=== PATIENT | female | born 1990 | race Hispanic/Latino ===

== ENCOUNTER 2022-05-03 03:59 | Observation (INO) | payer OTHER ==
[2022-05-03] MEDS ORDERED: NA CHLORIDE 0.9% 1,000 ML ONE ×2 (05:02→05:16)
[2022-05-03] MEDS ORDERED: ONDANSETRON 4 MG/2 ML VIAL ONE ×2 (05:02→07:42)
[2022-05-03] MEDS ORDERED: FAMOTIDINE 20 MG/2 ML VIAL IV ONE ×2 (05:02→10:23)
[2022-05-03 05:05] LABS: Absolute Lymphocytes (CBC) 0.5 K/uL (0.7-4.9); Hematocrit 39.4 % (36.0-45.0); Lymphocytes % 4.1 % (15.3-44.8); MCV 90.1 fL (80-100); MPV 8.1 fL (7.6-11.3); RBC Red Blood Cell Count 4.37 M/uL (3.86-4.86)
[2022-05-03] MEDS ORDERED: FENTANYL CITR 100 MCG/2 ML ONE ×2 (05:16→10:22)
[2022-05-03 05:18] LABS: Albumin 3.8 g/dL (3.4-5.0); Bilirubin Total 0.4 mg/dL (0.2-1.0); Protein, Total 7.6 g/dL (6.4-8.2)
[2022-05-03 05:36] LABS: Urine Blood Negative (Negative); Urine Glucose Negative (Negative); Urine Protein Negative (Negative)
--- NOTE | 2022-05-03 07:22 | EDPHYS ---
Physician Documentation [facility] Name: Moriah Marshall Age: 31 yrs Sex: Female : 1990 Arrival Date: 05/03/2022 Time: 04:03 Bed 15 Private MD: ED Physician Ozzy Vinson HPI: 05/03 04:57 This 31 yrs old Female presents to ER via Ambulatory with complaints of eun Abdominal Pain, Diarrhea, Vomiting. 04:57 The patient presents to the emergency department with nausea, vomiting, diarrhea, that eun is continuous. Onset: The symptoms/episode began/occurred last night. Possible causes: unknown. The symptoms are aggravated by nothing. The symptoms are alleviated by nothing. Associated signs and symptoms: Pertinent positives: abdominal pain. Severity of symptoms: At their worst the symptoms were mild moderate in the emergency department the symptoms are unchanged. The patient has not experienced similar symptoms in the past. 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 - Social history:: Smoking status: Patient denies any tobacco usage or history of. ROS: 04:58 Constitutional: Negative for fever, chills, and weight loss, Eyes: Negative for injury, eun pain, redness, and discharge, ENT: Negative for injury, pain, and discharge, Neck: Negative for injury, pain, and swelling, Cardiovascular: Negative for chest pain, palpitations, and edema, Respiratory: Negative for shortness of breath, cough, wheezing, and pleuritic chest pain, Back: Negative for injury and pain, : Negative for injury, bleeding, discharge, and swelling, MS/Extremity: Negative for injury and deformity, Skin: Negative for injury, rash, and discoloration, Neuro: Negative for headache, weakness, numbness, tingling, and seizure, Psych: Negative for depression, anxiety, suicide ideation, homicidal ideation, and hallucinations, Allergy/Immunology: Negative for hives, rash, and allergies, Endocrine: Negative for neck swelling, polydipsia, polyuria, polyphagia, and marked weight changes, Hematologic/Lymphatic: Negative for swollen nodes, abnormal bleeding, and unusual bruising. 04:58 Abdomen/GI: Positive for abdominal pain, nausea and vomiting, diarrhea. Exam: 04:58 Constitutional: This is a well developed, well nourished patient who is awake, alert, eun and in no acute distress. Head/Face: Normocephalic, atraumatic. Eyes: Pupils equal round and reactive to light, extra-ocular motions intact. Lids and lashes normal. Conjunctiva and sclera are non-icteric and not injected. Cornea within normal limits. Periorbital areas with no swelling, redness, or edema. ENT: Nares patent. No nasal discharge, no septal abnormalities noted. Tympanic membranes are normal and external auditory canals are clear. Oropharynx with no redness, swelling, or masses, exudates, or evidence of obstruction, uvula midline. Mucous membranes moist. Neck: Trachea midline, no thyromegaly or masses palpated, and no cervical lymphadenopathy. Supple, full range of motion without nuchal rigidity, or vertebral point tenderness. No Meningismus. Chest/axilla: Normal chest wall appearance and motion. Nontender with no deformity. No lesions are appreciated. Cardiovascular: Regular rate and rhythm with a normal S1 and S2. No gallops, murmurs, or rubs. Normal PMI, no JVD. No pulse deficits. Respiratory: Lungs have equal breath sounds bilaterally, clear to auscultation and percussion. No rales, rhonchi or wheezes noted. No increased work of breathing, no retractions or nasal flaring. Abdomen/GI: Soft, non-tender, with normal bowel sounds. No distension or tympany. No guarding or rebound. No evidence of tenderness throughout. Back: No spinal tenderness. No costovertebral tenderness. Full range of motion. Female : Normal external genitalia. Skin: Warm, dry with normal turgor. Normal color with no rashes, no lesions, and no evidence of cellulitis. MS/ Extremity: Pulses equal, no cyanosis. Neurovascular intact. Full, normal range of motion. Neuro: Awake and alert, GCS 15, oriented to person, place, time, and situation. Cranial nerves II-XII grossly intact. Motor strength 5/5 in all extremities. Sensory grossly intact. Cerebellar exam normal. Normal gait. Psych: Awake, alert, with orientation to person, place and time. Behavior, mood, and affect are within normal limits. Vital Signs: 04:16 BP 130 / 95; Pulse 83; Resp 18; Temp 97.6(O); Pulse Ox 100% ; Weight 78.47 kg; Height 5 kl ft. 3 in. (160.02 cm); Pain 4/10; 05:43 Pain 2/10; ke1 05:45 BP 130 / 94; Pulse 81; Resp 17; Pulse Ox 100% ; ke1 07:00 BP 128 / 91; Pulse 93; Resp 16; Pulse Ox 100% ; bp 04:16 Body Mass Index 30.65 (78.47 kg, 160.02 cm) kl MDM: 04:22 Patient medically screened. eun 04:59 Differential diagnosis: Nonspecific abd pain, gastritis, cholecystitis, pancreatitis, eun appendicitis, diverticulitis, viral gastroenteritis, gastroenteritis. Data reviewed: vital signs, nurses notes, lab test result(s). 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 05/03 04:24 Order name: CBC with Diff; Complete Time: 05:10 [facility] 05/03 04:24 Order name: CMP; Complete Time: 05:33 [facility] 05/03 04:24 Order name: Lipase; Complete Time: 05:33 [facility] 05/03 05:36 Order name: Urine --Ancillary (enter results); Complete Time: 06:51 05/03 05:37 Order name: Urine Dipstick-Ancillary; Complete Time: 05:40 [facility] 05/03 07:49 Order name: SARS RAPID bp 05/03 04:57 Order name: CT Abd/Pelvis - IV Contrast Only [facility] 05/03 06:52 Order name: US Transvaginal Study (Probe) [facility] 05/03 09:31 Order name: SARS-COV-2 Antigen Rapid [facility] 05/03 10:43 Order name: CBC with Manual Differential [facility] 05/03 04:24 Order name: IV Saline Lock; Complete Time: 04:53 [facility] 05/03 04:24 Order name: Labs collected and sent; Complete Time: 04:53 [facility] 05/03 04:24 Order name: Urine Dipstick-Ancillary (obtain specimen); Complete Time: 05:37 [facility] 05/03 04:24 Order name: Urine Test (obtain specimen); Complete Time: 05:37 [facility] 05/03 09:35 Order name: Labs - recollect needed: blood hemolyed/ will reprint label; Complete Time: eb 10:20 Administered Medications: 05:03 Drug: NS 0.9% 1000 ml Route: IV; Rate: 1 bolus; Site: right antecubital; ke1 10:38 Follow up: IV Status: Completed infusion; IV Intake: 1000ml bp 05:03 Drug: Pepcid (famotidine) 20 mg Route: IVP; Site: right antecubital; ke1 05:33 Follow up: Response: No adverse reaction ke1 05:03 Drug: Zofran (Ondansetron) 4 mg Route: IVP; Site: right antecubital; ke1 05:33 Follow up: Response: Nausea is decreased ke1 05:13 Drug: fentaNYL (PF) 25 mcg Route: IVP; Site: right antecubital; ke1 05:43 Follow up: Pain 2/10 Adult; Response: Pain is decreased ke1 05:13 Drug: NS 0.9% 1000 ml Route: IV; Rate: 1 bolus; Site: right antecubital; ke1 10:37 Follow up: IV Status: Completed infusion; IV Intake: 1000ml bp 07:15 Drug: Ketorolac 30 mg Route: IVP; Site: right antecubital; bp 07:48 Follow up: Response: Pain is decreased bp 07:15 Drug: Zofran (Ondansetron) 4 mg Route: IVP; Site: right antecubital; bp 07:49 Follow up: Response: No adverse reaction bp 07:43 Not Given (Patient Refused): fentaNYL (PF) 25 mcg IVP once bp 07:43 Not Given (Patient Refused): Zofran (Ondansetron) 4 mg IVP once; over 2 minutes bp Disposition Summary: 05/03/22 07:21 Hospitalization Ordered Hospitalization Status: Observation eun Condition: Fair eun Problem: new eun Symptoms: have improved eun Bed/Room Type: Standard eun Provider: Patrick Liriano(05/03/22 07:36) eun [facility](05/03/22 07:59) eb Room Assignment: 271-(05/03/22 10:08) eb Diagnosis - Hemoperitoneum - ovarian cyst, hemorrhagic eun - Abdominal tenderness eun Discharge Instructions: - Discharge Summary Sheet eun - Abdominal Pain, Adult eun - Food Choices to Help Relieve Diarrhea, Adult eun - Diarrhea, Adult eun - Diarrhea, Adult, Dwhd-mi-Wrut eun - Vomiting, Adult eun Forms: - Medication Reconciliation Form eun - SBAR form eun Prescriptions: - Zofran 4 mg Oral Tablet - take 1 tablet by ORAL route every 12 hours As needed; 20 tablet; Refills: 0, eun Product Selection Permitted - promethazine 25 mg Oral Tablet - take 1 tablet by ORAL route every 6 hours As needed; 20 tablet; Refills: 0, [facility] Product Selection Permitted - dicyclomine 20 mg Oral Tablet - take 1 tablet by ORAL route 4 times per day; 28 tablet; Refills: 0, Product eun Selection Permitted Signatures: Dispatcher [employer] Alice Arenas RN RN kl Anderson, Corey, MD MD cha Peltier, Brian RN Aiyana Suárez Kouassi, RN RN ke1 Natacha Chávez PA PA sb3 Corrections: (The following items were deleted from the chart) 05:17 05:15 PMHx: None; 1 05:20 05:15 PMHx: infection mononucleosis; ke1 ke 07:36 07:21 Varun Suazo cha eun 07:59 07:21 Telemetry/MedSurg (observation) eun eb 07:59 07:21 eun eb 10:08 07:59 eb eb
--- NOTE | 2022-05-03 07:22 | ER ---
Nurse's Notes [facility] Name: Moriah Marshall Age: 31 yrs Sex: Female : 1990 Arrival Date: 05/03/2022 Time: 04:03 Bed 15 Private MD: Diagnosis: Hemoperitoneum-ovarian cyst, hemorrhagic;Abdominal tenderness Presentation: 05/03 04:16 Chief complaint: Patient states: vomiting diarrhea since 10 pm pt reports has access IV kl fluids and medications. Pt medicated with 1 liter NS 20 mg Pepcid IV Zofran 4mg IV at 11 pm last night . pt reports emesis while en rout to hospital. Coronavirus screen: Vaccine status: Patient reports being unvaccinated. Ebola Screen: Patient negative for fever greater than or equal to 101.5 degrees Fahrenheit, and additional compatible Ebola Virus Disease symptoms. Initial Sepsis Screen: Does the patient meet any 2 criteria? No. Patient's initial sepsis screen is negative. Does the patient have a suspected source of infection? No. Patient's initial sepsis screen is negative. Risk Assessment: Do you want to hurt yourself or someone else? Patient reports no desire to harm self or others. Onset of symptoms was May 02, 2022 at 22:00. 04:16 Method Of Arrival: Ambulatory kl 04:16 Acuity: INGA 3 kl Triage Assessment: 04:20 General: Appears distressed, uncomfortable, Behavior is calm, cooperative. Pain: kl Complains of pain in epigastric area, suprapubic area and right upper quadrant Pain currently is 4 out of 10 on a pain scale. at worst was 10 out of 10 on a pain scale. GI: Reports diarrhea, nausea, vomiting. 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 - Social history:: Smoking status: Patient denies any tobacco usage or history of. Screenin:14 Abuse screen: Denies threats or abuse. Nutritional screening: No deficits noted. ke1 Tuberculosis screening: No symptoms or risk factors identified. Fall Risk None identified. Assessment: 05:12 Pain: Complains of pain in abdomen Pain does not radiate. Pain currently is 7 out of 10 ke1 on a pain scale. at worst was 10 out of 10 on a pain scale. level that patient reports is acceptable is 3 out of 10 on a pain scale. Quality of pain is described as throbbing. 05:15 GI: Abd is soft Abdomen is tender to palpation in umbilical area. ke1 05:17 GI: Bowel sounds present X 4 quads. ke1 05:44 Reassessment: CT notified of UPT results and green top at bedside. ke1 07:00 Reassessment: RECD REPORT FROM LAKISHA SAAVEDRA. 31YO HF P/W ABDOMINAL PAIN AND N/V. U/S IN bp PROCESS. Vital Signs: 04:16 BP 130 / 95; Pulse 83; Resp 18; Temp 97.6(O); Pulse Ox 100% ; Weight 78.47 kg; Height 5 kl ft. 3 in. (160.02 cm); Pain 4/10; 05:43 Pain 2/10; ke1 05:45 BP 130 / 94; Pulse 81; Resp 17; Pulse Ox 100% ; ke1 07:00 BP 128 / 91; Pulse 93; Resp 16; Pulse Ox 100% ; bp 04:16 Body Mass Index 30.65 (78.47 kg, 160.02 cm) ED Course: 04:03 Patient arrived in ED. bp1 04:10 Gold Gutierrez RN is Primary Nurse. ke1 04:19 Triage completed. kl 04:22 Ozzy Vinson MD is Attending Physician. eun 04:52 Inserted saline lock: 20 gauge in right antecubital area, using aseptic technique. ke1 05:14 Bed in low position. Call light in reach. Side rails up X 1. Adult w/ patient. ke1 05:17 Arm band placed on. ke1 06:17 CT Abd/Pelvis - IV Contrast Only In Process Unspecified. EDMS 07:20 Varun Suazo MD is Hospitalizing Provider. eun 07:22 Primary Nurse role handed off by Gold Gutierrez RN bp 07:22 Matt Khan RN is Primary Nurse. bp 07:33 Transvaginal Study (Probe) In Process Unspecified. EDMS 07:36 Patrick Liriano MD is Hospitalizing Provider. eun 10:36 No provider procedures requiring assistance completed. Patient admitted, IV remains in bp place. Administered Medications: 05:03 Drug: NS 0.9% 1000 ml Route: IV; Rate: 1 bolus; Site: right antecubital; ke1 10:38 Follow up: IV Status: Completed infusion; IV Intake: 1000ml bp 05:03 Drug: Pepcid (famotidine) 20 mg Route: IVP; Site: right antecubital; ke1 05:33 Follow up: Response: No adverse reaction ke1 05:03 Drug: Zofran (Ondansetron) 4 mg Route: IVP; Site: right antecubital; ke1 05:33 Follow up: Response: Nausea is decreased ke1 05:13 Drug: fentaNYL (PF) 25 mcg Route: IVP; Site: right antecubital; ke1 05:43 Follow up: Pain 2/10 Adult; Response: Pain is decreased ke1 05:13 Drug: NS 0.9% 1000 ml Route: IV; Rate: 1 bolus; Site: right antecubital; ke1 10:37 Follow up: IV Status: Completed infusion; IV Intake: 1000ml bp 07:15 Drug: Ketorolac 30 mg Route: IVP; Site: right antecubital; bp 07:48 Follow up: Response: Pain is decreased bp 07:15 Drug: Zofran (Ondansetron) 4 mg Route: IVP; Site: right antecubital; bp 07:49 Follow up: Response: No adverse reaction bp 07:43 Not Given (Patient Refused): fentaNYL (PF) 25 mcg IVP once bp 07:43 Not Given (Patient Refused): Zofran (Ondansetron) 4 mg IVP once; over 2 minutes bp Medication: 10:37 VIS not applicable for this client. bp Intake: 10:37 IV: 1000ml; Total: 1000ml. bp 10:38 IV: 1000ml; Total: 2000ml. bp Outcome: 07:21 Decision to Hospitalize by Provider. eun 10:36 Admitted to L \T\ D, accompanied by tech, family with patient, via wheelchair, room 271, bp with chart, Report called to LEIGH SAAVEDRA 10:36 Condition: stable 10:36 Instructed on the need for admit. 11:07 Patient left the ED. bp Signatures: Dispatcher [employer] Alice Arenas RN RN kl Anderson, Corey, MD MD cha Peltier, Brian, RN RN bp Paniauga, Brittany bp1 Ebrottie, Kouassi, RN RN ke1 Corrections: (The following items were deleted from the chart) 05:17 05:15 PMHx: None; ke1 ke1 05:20 05:15 PMHx: infection mononucleosis; ke1 ke1
[2022-05-03] MEDS ORDERED: ACETAMINOPHEN 325 MG TABLET PO PRN (07:29)
[2022-05-03] MEDS ORDERED: ONDANSETRON 4 MG/2 ML VIAL IV PRN (07:29)
[2022-05-03] MEDS ORDERED: FENTANYL CITR 100 MCG/2 ML IV PRN (07:34)
[2022-05-03] MEDS ORDERED: KETOROLAC 30 MG/ML INJ ONE (07:42)
[2022-05-03] MEDS ORDERED: Ringers Lactate 1,000 ML IV SCH (08:00)
[2022-05-03] MEDS ORDERED: FAMOTIDINE 20 MG/2 ML VIAL IV SCH (09:00)
[2022-05-03 09:30] LABS: SARS-CoV-2 Antigen Rapid Res Negative (Negative)
--- NOTE | 2022-05-03 09:48 | RAD REPORT ---
EXAM DESCRIPTION: US - Transvaginal Study Probe - 05/03/2022 7:31 am CLINICAL HISTORY: Pelvic pain COMPARISON: May 03, 2022 CT FINDINGS: The uterus measures 9 x 3 x 4 cm. A fibroid is not seen. The endometrial stripe measures 1 centimeter. 2.8 centimeter structure left uterus may represent a fibroid. Left ovary appears normal in size and echotexture. Left adnexal unremarkable. 6 x 3 centimeter heterogeneous structure within the right adnexal. A normal appearing right ovary not visualized. Moderate hemoperitoneum IMPRESSION: 6 x 3 centimeter heterogeneous structure right adnexa. This may represent hemorrhagic ov nikolas cyst which has ruptured. If the patient is beta HCG positive this could indicate an ectopic pre gnancy Moderate hemoperitoneum
[2022-05-03 10:07] VITALS: BMI 30.6
[2022-05-03] MEDS ORDERED: Ringers Lactate 1,000 ML IV ONE (10:23)
[2022-05-03 10:37] LABS: Absolute Lymphocytes (CBC) 1.5 K/uL (0.7-4.9); Hematocrit 38.5 % (36.0-45.0); Lymphocytes % 14.7 % (15.3-44.8); RBC Red Blood Cell Count 4.27 M/uL (3.86-4.86)
[2022-05-03 11:37] VITALS: TEMP 97.6; O2SAT 100
[2022-05-03 11:41] LABS: Blood Morphology Comment NOT SEEN (NOT SEEN); Platelet Estimate ADEQ
[2022-05-03 13:27] LABS: Absolute Lymphocytes (CBC) 2.3 K/uL (0.7-4.9); Hematocrit 36.6 % (36.0-45.0); Lymphocytes % 20.8 % (15.3-44.8); MCV 90.2 fL (80-100); MPV 8.7 fL (7.6-11.3); RBC Red Blood Cell Count 4.06 M/uL (3.86-4.86)
[2022-05-03 14:48] LABS: Blood Morphology Comment NOT SEEN (NOT SEEN); Platelet Estimate ADEQ; White Blood Cell Scan OK (OK)
[2022-05-03 15:05] VITALS: BP 122/71
--- NOTE | 2022-05-04 06:18 | DS ---
Date of Discharge: 05/03/2022 Final Diagnoses: 1.Hemoperitoneum. 2.Right-sided hemorrhagic ovarian cyst. 3.Abdominal pain. Hospital Course: Moriah Marshall is a 31-year-old female, non with an acute history, yesterday, right upper quadrant pain with spreading of the pain to her periumbilical area to the rig ht lower quadrant. She also was experiencing multiple episodes of nausea and later also had some vom iting episodes. Her last menstrual period as of April 12 and she has stated that current cycle has been unusual. She has also been experiencing a lot of premenstrual symptoms including breast tender ness and the bloating sensation. Again, she had a negative test. She was admitted to the hospital, had ultrasound, and CT scan and workup showing no signs of gastrointestinal issues and main ly focussed on the Public Space Attendant issues. She was observed in a short-term fashion. Initially she was admitted with a hemoglobin of 13.7 and repeat showing 13.3, and multiple hours later, stayed around the same with a value of 12.7. She was evaluated, interviewed, and examined by me and a lengthy bedside discu ssion about her Public Space Attendant issues was conducted with her and patient is willing to go home and follow up on outpatient basis. During the afternoon, her temperature was 97.6, pulse is 81, respirations 18, bloo d pressure was 122/71. Overall condition is stable. She was discharged to home in good and stable c onditions. No prescription given. She was instructed to take [id number] Tylenol, Naprosyn, or ibuprofen. Followup care instruction with Dr. Liriano was given to her and in reviewing of the hemope ritoneum, anemia signs were all reviewed with the patient. The patient was sent home in good and stable condition. RUSSELL/LISA Voice ID: [id number] Report ID: [id number]
--- NOTE | 2022-05-04 13:41 | RAD REPORT ---
EXAM DESCRIPTION: CT - Abdomen Pelvis W Contrast - 05/03/2022 7:23 am ADDENDUM #1 THIS REPORT CONTAINS FINDINGS THAT MAY BE CRITICAL TO PATIENT CARE: The findings were verbally discus sed via telephone conference with Dr. Vinson 6:48 AM central time May 03, 2022. The results w ere acknowledged and understood. Electronically signed by: Mariah Flores MD 05/03/2022 6:52 AM CDT End of Addendum EXAM DESCRIPTION: CT Abdomen and Pelvis With Intravenous Contrast CLINICAL HISTORY: The patient is 31 years old and is Female; LLQ abdominal pain TECHNIQUE: Axial computed tomography images of the abdomen and pelvis with intravenous contrast. S agittal and coronal reformatted images were created and reviewed. This CT exam was performed using one or more of the following dose reduction techniques: automated exposure control, adjustment of t he mA and/or kV according to patient size, and/or use of iterative reconstruction technique. COMPARISON: No relevant prior studies available. FINDINGS: Lung bases: Unremarkable. No mass. No consolidation. ABDOMEN: Liver: 13 mm hypodense lesion in the left hepatic lobe, likely benign. No follow-up imaging recomme nded. Gallbladder and bile ducts: Unremarkable. No calcified stones. No ductal dilation. Pancreas: No findings to suggest acute pancreatitis. No mass visualized. No ductal dilation. Spleen: Unremarkable. No splenomegaly. Adrenals: Unremarkable. No mass. Kidneys and ureters: Unremarkable. No solid mass. No hydronephrosis. Stomach and bowel: No bowel dilatation or obstruction. No bowel wall thickening. PELVIS: Appendix: Appendix not visualized. Bladder: Unremarkable. No mass. Reproductive: There is a moderate amount of blood in the pelvis obscuring the adnexal structures, right greater than left. Possible subserosal fundal fibroid. Prominent endometrium. ABDOMEN and PELVIS: Intraperitoneal space: There is free fluid in the bilateral upper quadrants and bilateral paracol ic gutters. No free air. Bones/joints: No acute fracture. No dislocation. Soft tissues: Unremarkable. Vasculature: Unremarkable. No abdominal aortic aneurysm. Lymph nodes: No pathologically enlarged lymph nodes. IMPRESSION: Moderate amount of blood in the pelvis, right greater than left. Free fluid extends into the upper quadrants. Differential diagnosis includes ruptured ectopic and hemorrhagic rupt ured ovarian cyst. Clinical correlation suggested. Electronically signed by: Mariah Flores MD 05/03/2022 6:44 AM CDT Due to temporary technical issues with the PACS/Fluency reporting system, reports are being signed by the in house radiologists without review as a courtesy to insure prompt reporting. The interpreting radiologist is fully responsible for the content of the report.
== END 2022-05-03 14:40 | disposition home or self-care (01) ==
LOC: ER 03:59 → ERHOLD 07:26 → 2ND-WC 10:36
PROVIDERS: ADMIT Obstetrics & Gynecology; ATTEND Obstetrics & Gynecology
DX: N83.201 Unspecified ovarian cyst, right side (principal); K66.1 Hemoperitoneum
CPT/HCPCS: 96361; 85025 ×3; 36415; 81025; 81003; 83690; 80053; 74177; 76830; 96375; 96374; 99285; 87811; Q9967; J3010 ×2; J7120; J7030 ×2; J2405 ×2; G0378 ×2